=== PATIENT | female | born 1955 | race Caucasian/White ===

== ENCOUNTER 2017-05-09 09:06 | Inpatient (IN) | payer MEDICAID ==
[2017-05-09] VITALS (23 sets, daily range): BP systolic 101–152; BP diastolic 56–81
[~2017-05-09] VITALS: Ht 160 cm; Wt 64.5 kg
--- NOTE | ~2017-05-09 | EKG ---
[address] [address] ELECTROCARDIOGRAM REPORT Name: DENIZ WOO Room #: 246-P ADM IN M.R.#: [id number] Admission: 05/09/17 Attend Phys: Stan Childs Discharge: Date of : 55 Report #: [id number] THIS REPORT FOR: //name// [facility] ED Test Date: 2017-05-09 Test Time: 09:31:08 Pat Name: DENIZ WOO Department: Room: 246 Gender: F Crib Pad Maker: PARESH : 1955 Requested By: Edgar Taylor Order Number: [id number] MD: Armin Yao Measurements Intervals [place] Rate: 98 P: 123 HI: 214 QRS: 74 QRSD: 125 T: 17 QT: 365 QTc: 467 Interpretive Statements Sinus rhythm Borderline prolonged HI interval Nonspecific intraventricular conduction delay No previous ECG available for comparison Electronically Signed On 05-10-2017 16:55:41 CDT by Armin Yao [email or web address] <ELECTRONICALLY SIGNED> By: Armin Yao MD 05/10/17 1655 0931 0 Armin Yao MD /TAHIRA
--- NOTE | ~2017-05-09 | 2DMMODE ---
[facility] [address] [place] [address] 2 D/M-MODE ECHOCARDIOGRAM Name: DENIZ WOO Room #: 246-P ADM IN M.R.#: [id number] Admission: 05/09/17 Attend Phys: Stan Harper Discharge: Date of : 55 Date of Service: 05/11/17 0755 Report #: [id number] THIS REPORT FOR: //name// APPROVED REPORT Study performed: 05/11/2017 07:14:34 EXAM: Comprehensive 2D, Doppler, and color-flow Echocardiogram Patient Location: ICU Room #: [facility] Status: routine Other Information Study Quality: Adequate/Limited mobility. Indications Congestive Heart Failure Dyspnea 2D Dimensions RVDd: 39.85 mm LVEF(%): 65.86 (>50%) IVSd: 11.06 (7-11mm) LVOT Diam: 18.91 (18-24mm) LVDd: 44.91 mm PWd: 10.40 (7-11mm) Ascending Ao: 32.33 (22-36mm) LVDs: 28.70 (25-40mm) Aortic Root: 30.67 mm Pacheco's LVEF: 65.86 % Volumes Left Atrial Volume (Systole) Single Plane 4CH: 41.52 mL Single Plane 2CH: 44.38 mL LA ESV Index: 27.00 mL/m2 Aortic Valve AoV Peak Abhijit.: 1.85 m/s AO Peak Gr.: 13.64 mmHg LVOT Max P.30 mmHg LVOT Max V: 1.26 m/s JOSÉ MIGUEL Vmax: 1.91 cm2 Mitral Valve IVRT: 51.90 ms Pulmonary Valve PV Peak Abhijit.: 1.46 m/s PV Peak Gr.: 8.54 mmHg [facility] [address] [place] [address] 2 D/M-MODE ECHOCARDIOGRAM Name: DENIZ WOO Room #: [address] [place] [address] IN ..#: [id number] Admission: 05/09/17 Attend Phys: Stan Harper Discharge: Date of : 55 Date of Service: 05/11/17 0755 Report #: [id number] Tricuspid Valve TR Peak Abhijit.: 2.82 m/s RAP Estimate: 10.00 mmHg TR Peak Gr.: 31.78 mmHg PA Pressure: 42.00 mmHg Left Ventricle The left ventricle is normal size. There is normal LV segmental wall motion. There is normal left ventricular wall thickness. Left ventricular systolic function is normal. LVEF is 60-65%. This study is not technically sufficient to allow evaluation of the LV diastolic function due to rapid heart rate. Right Ventricle The right ventricle is normal size. The right ventricular systolic function is normal. Atria The left atrium size is normal. The right atrium size is normal. Aortic Valve Aortic valve leaflets are mildly thickened. No aortic regurgitation is present. There is no aortic valvular stenosis. Mitral Valve Mitral valve leaflets are mildly thickened. Trace mitral regurgitation. No evidence of mitral valve stenosis. Tricuspid Valve The tricuspid valve is normal in structure. There is mild tricuspid regurgitation. The right atrial pressure is estimated at 10 mmHg. There is moderate pulmonary hypertension with an estimated PAP of 40-45mmHg. Pulmonic Valve Pulmonic valve is not well visualized. Great Vessels The aortic root is normal in size. The ascending aorta is normal in size. IVC is dilated and collapses <50% with inspiration. Pericardium There is no pericardial effusion. <Conclusion> [facility] [address] [place] [address] 2 D/M-MODE ECHOCARDIOGRAM Name: DENIZ WOO Room #: 246-P [facility] IN M.R.#: [id number] Admission: 05/09/17 Attend Phys: Stan Harper Discharge: Date of : 55 Date of Service: 05/11/17 0755 Report #: [id number] The left ventricle is normal size. LVEF is 60-65%. Aortic valve leaflets are mildly thickened. No aortic regurgitation is present. There is no aortic valvular stenosis. Mitral valve leaflets are mildly thickened. Trace mitral regurgitation. No evidence of mitral valve stenosis. The tricuspid valve is normal in structure. There is mild tricuspid regurgitation. The right atrial pressure is estimated at 10 mmHg. There is moderate pulmonary hypertension with an estimated PAP of 40-45mmHg. Pulmonic valve is not well visualized. IVC is dilated and collapses <50% with inspiration. <ELECTRONICALLY SIGNED> By: Westley Varela MD 05/11/175 4 4 Westley Varela MD /INF
[2017-05-09 09:41] LABS: ABG SAMPLE TYPE ARTERIAL; BE(vivo) -6.3 mmol/L (-2 to +3); HCO3 22.3 mmol/L (22.0-26.0); LACTATE 1.12 mmol/L (0.5-2.0); O2(CT) 14.8 mL/dL (15.0-23.0); O2Hb 87.4 % (92.0-98.0); PCO2 59.1 mmHg (35.0-45.0); PO2 64.3 mmHg (80.0-100.0); STICK SITE L.RADIAL; pH 7.195 (7.360-7.450); tCO2 24.1 mmol/L (24.0-30.0)
[2017-05-09 09:42] LABS: HEMATOCRIT 34.7 % (37.0-47.0); HEMOGLOBIN 11.5 gm/dL (12.0-15.0); MANUAL DIFF YES; MCH 28.9 pg (26.0-34.0); MCV 87.7 fL (80.0-100.0); PLATELET COUNT 226 thou/uL (150-400); RBC 3.96 mil/uL (4.20-5.00); WBC 15.3 thou/uL (4.0-11.0)
[2017-05-09] MEDS ORDERED: VENLAFAXIN75 MG/1 T2 PO (09:47)
[2017-05-09] MEDS ORDERED: CLONAZEPAM 0.50.5 M1 PO (09:48)
[2017-05-09] MEDS ORDERED: CENTRUM CHEWAB1 EACH PO (09:48)
[2017-05-09] MEDS ORDERED: PROBIOTIC1 EAC1 PO (09:49)
[2017-05-09] MEDS ORDERED: CLONAZEPAM 1 MG1 M1 PO (09:49)
[2017-05-09] MEDS ORDERED: TRAZODONE HCL50 MG PO (09:49)
[2017-05-09] MEDS ORDERED: PHENERGAN 25 MG25 M1 PO (09:50)
[2017-05-09] MEDS ORDERED: NAPROSYN500 MG PO (09:50)
[2017-05-09] MEDS ORDERED: LAMICTAL XR200 MG PO (09:50)
[2017-05-09] MEDS ORDERED: SYMBICORT160 MCG/4. INH (09:51)
[2017-05-09] MEDS ORDERED: ZANAFLEX4 MG PO (09:51)
[2017-05-09] MEDS ORDERED: HYDROXYZINE HCL25 M2 PO (09:52)
[2017-05-09] MEDS ORDERED: LIDODERM 5%1 PATC1 TRANSDERM (09:53)
[2017-05-09] MEDS ORDERED: COMBIVENT INH (09:53)
[2017-05-09 09:54] LABS: ANION GAP 14 mmol/L (7-16); BUN 62 mg/dL (7-18); CALCIUM 8.8 mg/dL (8.5-10.1); CHLORIDE 96 mmol/L (98-107); CO2 25 mmol/L (21-32); CREATININE 6.2 mg/dL (0.6-1.0); GLUCOSE 141 mg/dL (74-106); POTASSIUM 4.9 mmol/L (3.5-5.1); SODIUM 135 mmol/L (136-145)
[2017-05-09 10:05] LABS: ALKALINE PHOSPHATASE 150 U/L (46-116); MAGNESIUM 2.3 mg/dL (1.8-2.4); NT-PRO BRAIN NAT PEPTIDE 7264 pg/mL (<300); SGOT 22 U/L (15-37); SGPT 14 U/L (30-65); TOTAL BILIRUBIN 1.3 mg/dL (<0.1-1.0); TOTAL PROTEIN 8.3 g/dL (6.4-8.2); TROPONIN-I < 0.04 ng/mL (<0.04-0.07)
[2017-05-09 10:18] LABS: URINE BILIRUBIN 1+ (Negative); URINE BLOOD 1+ (Negative); URINE GLUCOSE-RANDOM* NEGATIVE (Negative); URINE KETONES NEGATIVE (Negative); URINE LEUKOCYTES-REFLEX NEGATIVE (Negative); URINE PROTEIN (DIPSTICK) 2+ (Negative); URINE SPECIFIC GRAVITY >= 1.030 (1.003-1.035); URINE UROBILINOGEN 0.2 E.U./dl (0.2-1.0)
[2017-05-09 10:20] LABS: ICTOTEST (BILI CONFIRMATORY) Negative (Negative); URINE COLOR DARK YELLOW
[2017-05-09 10:24] LABS: ABSOLUTE NEUTROPHILS 11.5 thou/uL (1.4-8.2); METAMYELOCYTES 3 %; PLATELET ESTIMATE NORMAL; TOTAL CELL COUNT 100
[2017-05-09 10:27] LABS: SQUAMOUS 0-3 Few /LPF (0-3)
[2017-05-09 10:28] LABS: CASTS None Seen /LPF (None Seen)
[2017-05-09 10:30] LABS: AMORPHOUS URATES Few /LPF (None Seen); URINE RBC 0-2 Rare /HPF (0-2); URINE WBC-REFLEX 0-5 Rare /HPF (0-5)
[2017-05-09 10:59] LABS: ABG SAMPLE TYPE ARTERIAL; O2(CT) 14.5 mL/dL (15.0-23.0); O2Hb 96.3 % (92.0-98.0); PCO2 53.3 mmHg (35.0-45.0); PO2 111.1 mmHg (80.0-100.0); sO2 96.4 % (92.0-98.0); tCO2 18.7 mmol/L (24.0-30.0)
[2017-05-09 11:00] LABS: Pressure Support 12 cm H20; STICK SITE L.RADIAL; pH 7.122 (7.360-7.450)
[2017-05-09 11:25] LABS: CALCIUM 7.3 mg/dL (8.5-10.1); CREATININE 5.6 mg/dL (0.6-1.0); POTASSIUM 4.9 mmol/L (3.5-5.1)
[2017-05-09 11:46] LABS: APTT 34.8 Seconds (24.5-32.8); FIBRINOGEN 555.4 mg/dL (210-360)
[2017-05-09] MEDS ORDERED: CERTAVITE-LUTE1 EAC1 PO (13:35)
[2017-05-09] MEDS ORDERED: LAMICTAL200 MG PO (13:36)
[2017-05-09 15:04] LABS: ABG SAMPLE TYPE VENOUS; BE(vivo) -11.3 mmol/L (-2 to +3); LACTATE 0.89 mmol/L (0.5-2.0); O2(CT) 12.7 mL/dL (15.0-23.0); O2Hb VENOUS 78.2 (65.0-85.0); PCO2 VENOUS 55.6 mmHg (41.0-51.0); sO2 VENOUS 72.5 % (65.0-85.0); tCO2 19.7 mmol/L (24.0-30.0)
[2017-05-09 15:07] LABS: AMYLASE 24 U/L (25-115)
[2017-05-09 15:11] LABS: STICK SITE LINE
[2017-05-09 15:37] LABS: CALCIUM 7.6 mg/dL (8.5-10.1); CREATININE 5.6 mg/dL (0.6-1.0); POTASSIUM 5.4 mmol/L (3.5-5.1)
[2017-05-09 16:53] LABS: ABG SAMPLE TYPE ARTERIAL; BE(vivo) -9.5 mmol/L (-2 to +3); HCO3 19.5 mmol/L (22.0-26.0); LACTATE 1.14 mmol/L (0.5-2.0); O2(CT) 11.2 mL/dL (15.0-23.0); O2Hb VENOUS 71.1 (65.0-85.0); PCO2 VENOUS 57.1 mmHg (41.0-51.0); PO2 VENOUS 40.4 mmHg (35.0-45.0); sO2 VENOUS 60.5 % (65.0-85.0); tCO2 21.2 mmol/L (24.0-30.0)
[2017-05-09 16:56] LABS: Pressure Support 12 cm H20; STICK SITE LINE
[2017-05-09 17:59] LABS: ABG SAMPLE TYPE VENOUS; HCO3 23.2 mmol/L (22.0-26.0); LACTATE 1.41 mmol/L (0.5-2.0); O2(CT) 12.2 mL/dL (15.0-23.0); O2Hb VENOUS 78.3 (65.0-85.0); PCO2 VENOUS 58.3 mmHg (41.0-51.0); PO2 VENOUS 45.1 mmHg (35.0-45.0); sO2 VENOUS 71.3 % (65.0-85.0)
[2017-05-09 18:00] LABS: STICK SITE LINE
[2017-05-09 18:57] LABS: ABG SAMPLE TYPE ARTERIAL; BE(vivo) -6.5 mmol/L (-2 to +3); HCO3 20.1 mmol/L (22.0-26.0); LACTATE 1.13 mmol/L (0.5-2.0); O2(CT) 13.5 mL/dL (15.0-23.0); PCO2 44.8 mmHg (35.0-45.0); sO2 84.6 % (92.0-98.0); tCO2 21.5 mmol/L (24.0-30.0)
[2017-05-09 18:58] LABS: PO2 55.3 mmHg (80.0-100.0); STICK SITE L.RADIAL
[2017-05-09 19:01] LABS: ABG SAMPLE TYPE VENOUS; BE(vivo) -5.2 mmol/L (-2 to +3); HCO3 22.8 mmol/L (22.0-26.0); LACTATE 1.26 mmol/L (0.5-2.0); O2(CT) 9.7 mL/dL (15.0-23.0); O2Hb VENOUS 63.8 (65.0-85.0); PCO2 VENOUS 56.1 mmHg (41.0-51.0); PO2 VENOUS 34.2 mmHg (35.0-45.0); sO2 VENOUS 54.1 % (65.0-85.0); tCO2 24.5 mmol/L (24.0-30.0)
[2017-05-09 19:07] LABS: STICK SITE LINE
[2017-05-09 20:13] LABS: CALCIUM 7.5 mg/dL (8.5-10.1); CREATININE 5.6 mg/dL (0.6-1.0); POTASSIUM 4.8 mmol/L (3.5-5.1)
[2017-05-09 20:39] LABS: AMP/METHAMP Negative (Negative); BARBITURATES Negative (Negative); BENZODIAZEPINES Negative (Negative); COCAINE Negative (Negative); METHADONE Negative (Negative); OPIATES POSITIVE (Negative); PCP Negative (Negative); THC Negative (Negative)
[2017-05-09 22:11] LABS: ABG SAMPLE TYPE ARTERIAL; BE(vivo) -5.5 mmol/L (-2 to +3); HCO3 21.6 mmol/L (22.0-26.0); LACTATE 1.14 mmol/L (0.5-2.0); O2(CT) 13.5 mL/dL (15.0-23.0); O2Hb 88.7 % (92.0-98.0); PCO2 49.5 mmHg (35.0-45.0); PO2 62.4 mmHg (80.0-100.0); STICK SITE LINE; pH 7.258 (7.360-7.450); sO2 88.2 % (92.0-98.0); tCO2 23.1 mmol/L (24.0-30.0)
[2017-05-10] VITALS (45 sets, daily range): BP systolic 108–219; BP diastolic 59–96
[2017-05-10 04:20] LABS: HEMATOCRIT 29.6 % (37.0-47.0); HEMOGLOBIN 10.1 gm/dL (12.0-15.0); MCH 29.2 pg (26.0-34.0); PLATELET COUNT 158 thou/uL (150-400); RBC 3.44 mil/uL (4.20-5.00); RDW 15.7 % (10.5-14.5); WBC 10.2 thou/uL (4.0-11.0)
[2017-05-10 04:25] LABS: MANUAL DIFF YES
[2017-05-10 04:34] LABS: CALCIUM 7.1 mg/dL (8.5-10.1); POTASSIUM 4.5 mmol/L (3.5-5.1)
[2017-05-10 05:18] LABS: ABSOLUTE NEUTROPHILS 8.3 thou/uL (1.4-8.2); TOTAL CELL COUNT 100
[2017-05-10 05:19] LABS: POLYCHROMASIA OCCASIONAL
[2017-05-10 08:09] LABS: ABG SAMPLE TYPE ARTERIAL; BE(vivo) -5.5 mmol/L (-2 to +3); HCO3 21.4 mmol/L (22.0-26.0); LACTATE 0.94 mmol/L (0.5-2.0); O2Hb 90.9 % (92.0-98.0); PCO2 47.9 mmHg (35.0-45.0); PO2 67.5 mmHg (80.0-100.0); pH 7.267 (7.360-7.450); sO2 90.7 % (92.0-98.0); tCO2 22.8 mmol/L (24.0-30.0)
[2017-05-10 08:10] LABS: STICK SITE R.RADIAL
[2017-05-10 12:09] LABS: ABG SAMPLE TYPE ARTERIAL; BE(vivo) -5.3 mmol/L (-2 to +3); HCO3 21.5 mmol/L (22.0-26.0); LACTATE 0.99 mmol/L (0.5-2.0); O2(CT) 14.7 mL/dL (15.0-23.0); O2Hb 95.3 % (92.0-98.0); PCO2 47.5 mmHg (35.0-45.0); PO2 89.8 mmHg (80.0-100.0); sO2 95.7 % (92.0-98.0); tCO2 22.9 mmol/L (24.0-30.0)
[2017-05-10 12:10] LABS: STICK SITE R.RADIAL; pH 7.273 (7.360-7.450)
[2017-05-11] VITALS (37 sets, daily range): BP systolic 85–168; BP diastolic 60–114
[2017-05-11 04:28] LABS: HEMATOCRIT 30.3 % (37.0-47.0); HEMOGLOBIN 10.1 gm/dL (12.0-15.0); MCH 28.3 pg (26.0-34.0); MCHC 33.3 g/dL (28.0-37.0); MCV 85.1 fL (80.0-100.0); PLATELET COUNT 179 thou/uL (150-400); RBC 3.56 mil/uL (4.20-5.00); RDW 15.9 % (10.5-14.5); WBC 13.5 thou/uL (4.0-11.0)
[2017-05-11 04:29] LABS: MANUAL DIFF YES
[2017-05-11 04:36] LABS: CALCIUM 7.3 mg/dL (8.5-10.1); POTASSIUM 3.8 mmol/L (3.5-5.1)
[2017-05-11 04:38] LABS: CREATININE 3.3 mg/dL (0.6-1.0)
[2017-05-11 05:52] LABS: ABSOLUTE NEUTROPHILS 10.7 thou/uL (1.4-8.2); MYELOCYTES 1 %; TOTAL CELL COUNT 100
[2017-05-11] MEDS ORDERED: EFFEXOR XR75 MG PO (08:14)
[2017-05-11 16:12] LABS: KAPPA FREE LIGHT CHAINS 114.9 mg/L (3.3-19.4); KAPPA/LAMBDA RATIO 1.78 (0.26-1.65); LAMBDA FREE LIGHT CHAINS 64.7 mg/L (5.7-26.3)
[2017-05-12] VITALS (29 sets, daily range): BP systolic 125–185; BP diastolic 57–110
[2017-05-12 05:49] LABS: HEMATOCRIT 34.1 % (37.0-47.0); HEMOGLOBIN 11.3 gm/dL (12.0-15.0); MCH 28.5 pg (26.0-34.0); MCHC 33.1 g/dL (28.0-37.0); MCV 86.1 fL (80.0-100.0); RBC 3.96 mil/uL (4.20-5.00); RDW 15.9 % (10.5-14.5); WBC 15.8 thou/uL (4.0-11.0)
[2017-05-12 06:09] LABS: ALBUMIN 2.6 g/dL (3.4-5.0); CALCIUM 8.2 mg/dL (8.5-10.1); CREATININE 2.8 mg/dL (0.6-1.0); PHOSPHORUS 4.9 mg/dL (2.5-4.9); POTASSIUM 4.4 mmol/L (3.5-5.1)
[2017-05-13 03:04] LABS: HEMATOCRIT 36.2 % (37.0-47.0); MCH 28.3 pg (26.0-34.0); MCHC 33.2 g/dL (28.0-37.0); MCV 85.1 fL (80.0-100.0); RBC 4.25 mil/uL (4.20-5.00); RDW 15.5 % (10.5-14.5); WBC 20.1 thou/uL (4.0-11.0)
[2017-05-13 03:07] VITALS: BP 167/90
[2017-05-13 03:16] LABS: ALBUMIN 2.6 g/dL (3.4-5.0); CALCIUM 8.5 mg/dL (8.5-10.1); PHOSPHORUS 2.9 mg/dL (2.5-4.9)
[2017-05-13 03:20] LABS: CREATININE 1.8 mg/dL (0.6-1.0)
[2017-05-13 07:41] VITALS: BP 177/104
[2017-05-13 16:56] VITALS: BP 175/100
[2017-05-13 19:36] VITALS: BP 163/96
[2017-05-14 03:14] VITALS: BP 151/86
[2017-05-14 04:21] LABS: HEMATOCRIT 37.1 % (37.0-47.0); HEMOGLOBIN 12.2 gm/dL (12.0-15.0); MCH 28.5 pg (26.0-34.0); MCHC 32.9 g/dL (28.0-37.0); MCV 86.6 fL (80.0-100.0); RBC 4.29 mil/uL (4.20-5.00); RDW 15.6 % (10.5-14.5); WBC 20.2 thou/uL (4.0-11.0)
[2017-05-14 04:45] LABS: ALBUMIN 2.6 g/dL (3.4-5.0); CALCIUM 8.6 mg/dL (8.5-10.1); CREATININE 1.4 mg/dL (0.6-1.0); PHOSPHORUS 2.8 mg/dL (2.5-4.9); POTASSIUM 3.3 mmol/L (3.5-5.1)
[2017-05-14 07:45] VITALS: BP 152/83
[2017-05-14 12:04] LABS: ABG SAMPLE TYPE ARTERIAL; BE(vivo) 8.8 mmol/L (-2 to +3); HCO3 34.2 mmol/L (22.0-26.0); LACTATE 1.25 mmol/L (0.5-2.0); O2(CT) 15.9 mL/dL (15.0-23.0); O2Hb 85.7 % (92.0-98.0); PCO2 50.2 mmHg (35.0-45.0); PO2 51.6 mmHg (80.0-100.0); STICK SITE R.RADIAL; pH 7.451 (7.360-7.450); sO2 87.6 % (92.0-98.0); tCO2 35.7 mmol/L (24.0-30.0)
[2017-05-14 14:30] VITALS: BP 153/85
[2017-05-14 16:15] VITALS: BP 158/78
[2017-05-14 19:20] VITALS: BP 166/97
[2017-05-15 02:58] LABS: HEMATOCRIT 39.2 % (37.0-47.0); HEMOGLOBIN 12.8 gm/dL (12.0-15.0); MCH 28.1 pg (26.0-34.0); MCHC 32.6 g/dL (28.0-37.0); MCV 86.2 fL (80.0-100.0); RBC 4.55 mil/uL (4.20-5.00); RDW 15.7 % (10.5-14.5); WBC 21.5 thou/uL (4.0-11.0)
[2017-05-15 03:02] LABS: CALCIUM 8.5 mg/dL (8.5-10.1); CREATININE 1.3 mg/dL (0.6-1.0); POTASSIUM 3.5 mmol/L (3.5-5.1)
[2017-05-15 03:24] VITALS: BP 139/87
[2017-05-15 07:25] VITALS: BP 163/95
[2017-05-15 11:50] VITALS: BP 130/98
[2017-05-15 12:47] LABS: ABG SAMPLE TYPE ARTERIAL; BE(vivo) 3.3 mmol/L (-2 to +3); HCO3 30.1 mmol/L (22.0-26.0); LACTATE 2.29 mmol/L (0.5-2.0); O2(CT) 16.6 mL/dL (15.0-23.0); O2Hb 85.1 % (92.0-98.0); PO2 56.1 mmHg (80.0-100.0); STICK SITE L.RADIAL; pH 7.356 (7.360-7.450); sO2 87.5 % (92.0-98.0); tCO2 31.8 mmol/L (24.0-30.0)
[2017-05-15 15:30] VITALS: BP 149/66
[2017-05-15 19:04] VITALS: BP 149/95
[2017-05-16 04:01] VITALS: BP 147/87
[2017-05-16 05:59] LABS: HEMOGLOBIN 12.4 gm/dL (12.0-15.0); MCH 28.2 pg (26.0-34.0); MCHC 32.5 g/dL (28.0-37.0); MCV 86.6 fL (80.0-100.0); RBC 4.39 mil/uL (4.20-5.00); RDW 15.6 % (10.5-14.5)
[2017-05-16 06:04] LABS: CALCIUM 8.4 mg/dL (8.5-10.1); CREATININE 1.4 mg/dL (0.6-1.0)
[2017-05-16 07:12] LABS: ABG SAMPLE TYPE ARTERIAL; BE(vivo) 5.4 mmol/L (-2 to +3); HCO3 31.9 mmol/L (22.0-26.0); LACTATE 1.54 mmol/L (0.5-2.0); O2(CT) 17.1 mL/dL (15.0-23.0); O2Hb 92.8 % (92.0-98.0); PCO2 55.5 mmHg (35.0-45.0); PO2 71.9 mmHg (80.0-100.0); STICK SITE L.RADIAL; pH 7.378 (7.360-7.450); sO2 93.9 % (92.0-98.0); tCO2 33.7 mmol/L (24.0-30.0)
[2017-05-16 07:41] VITALS: BP 129/74
[2017-05-16 11:03] VITALS: BP 115/69
[2017-05-16 16:35] VITALS: BP 129/71
[2017-05-16 19:27] VITALS: BP 135/83
[2017-05-17 00:19] VITALS: BP 139/86
[2017-05-17 03:36] VITALS: BP 156/79
[2017-05-17 05:57] LABS: HEMATOCRIT 37.2 % (37.0-47.0); HEMOGLOBIN 11.7 gm/dL (12.0-15.0); MCH 27.7 pg (26.0-34.0); MCHC 31.6 g/dL (28.0-37.0); MCV 87.7 fL (80.0-100.0); RBC 4.23 mil/uL (4.20-5.00); RDW 15.1 % (10.5-14.5); WBC 21.6 thou/uL (4.0-11.0)
[2017-05-17 06:11] LABS: CALCIUM 8.5 mg/dL (8.5-10.1); CREATININE 1.3 mg/dL (0.6-1.0); POTASSIUM 3.4 mmol/L (3.5-5.1)
[2017-05-17 07:33] VITALS: BP 141/74
[2017-05-17] MEDS ORDERED: MIRALAX17 GM PO (14:36)
[2017-05-17] MEDS ORDERED: DUONEB 2.5-0.5 M3 ML INH ×2 (14:36)
[2017-05-17] MEDS ORDERED: NICOTINE TRANSD21 M1 TRANSDERM (14:36)
[2017-05-17] MEDS ORDERED: COLACE100 MG PO (14:36)
[2017-05-17] MEDS ORDERED: CARVEDILOL6.25 MG PO (14:36)
[2017-05-17] MEDS ORDERED: AUGMENTIN 500-1 EACH PO (14:36)
[2017-05-17] MEDS ORDERED: PREDNISONE 10 M10 MG PO (14:36)
[2017-05-17] MEDS ORDERED: FAMOTIDINE 10 M10 MG PO (14:36)
[2017-05-17] MEDS ORDERED: MELATONIN5 M1 PO (14:36)
[2017-05-17] MEDS ORDERED: VOLTAREN GEL 1100 G1 TOP (14:36)
[2017-05-17] MEDS ORDERED: ENOXAPARIN30 MG/0.1 SUBQ (14:36)
== END 2017-05-17 16:05 | DRG 871 ==
LOC: ER 09:06 → ICU 10:14 → 2N 10:14 → EROBS 10:14 → ICU 11:54 → 2N 05-12 11:56
PROVIDERS: Hospitalist; Internal Medicine Nephrology; Internal Medicine Pulmonary Disease; Physician Assistant
PROC: 05HM33Z Insertion of Infusion Device into Right Internal Jugular Vein, Percutaneous Approach (ICD-10-PCS; principal; 2017-05-09)
DX: A41.9 Sepsis, unspecified organism (principal); R65.21 Severe sepsis with septic shock; J96.01 Acute respiratory failure with hypoxia; J96.02 Acute respiratory failure with hypercapnia; G92 Toxic encephalopathy; N17.0 Acute kidney failure with tubular necrosis; J69.0 Pneumonitis due to inhalation of food and vomit; N39.0 Urinary tract infection, site not specified; I13.0 Hypertensive heart and chronic kidney disease with heart failure and stage 1 through stage 4 chronic kidney disease, or unspecified chronic kidney disease; E87.0 Hyperosmolality and hypernatremia; J44.0 Chronic obstructive pulmonary disease with (acute) lower respiratory infection; J44.1 Chronic obstructive pulmonary disease with (acute) exacerbation; F33.9 Major depressive disorder, recurrent, unspecified; N18.9 Chronic kidney disease, unspecified; E86.0 Dehydration; F17.210 Nicotine dependence, cigarettes, uncomplicated; F41.9 Anxiety disorder, unspecified; K82.8 Other specified diseases of gallbladder; G47.00 Insomnia, unspecified; E87.5 Hyperkalemia; I50.9 Heart failure, unspecified; E87.6 Hypokalemia; Z79.899 Other long term (current) drug therapy; Z99.81 Dependence on supplemental oxygen
CPT/HCPCS: 10078; 10081

== ENCOUNTER 2020-09-16 23:11 | Inpatient (IN) | payer MEDICAID ==
[~2020-09-16] VITALS: Ht 167.6 cm; Wt 69.5 kg
--- NOTE | ~2020-09-16 | HC ---
[facility] [place] [address] CONSULTATION Name: DENIZ WOO Room #: [facility]- ADM IN M.R.#: [id number] Admission: 09/17/20 Attend Phys: Nando Foy MD Discharge: Date of : 55 Report #: [id number] THIS REPORT FOR: cc: FAM - Family physician unknown FAM - Family physician unknown Travon Wise MD ~ REASON FOR CONSULTATION: Acute kidney injury. REASON FOR PRESENTATION: Shortness of breath. HISTORY OF PRESENT ILLNESS: Obtained from the medical chart. I am not able to obtain any history from the patient. She is currently intubated. She had tested positive for COVID-19. I was consulted to manage her acute kidney injury as she had a creatinine value of 5.5 on arrival. She also has significant hyperkalemia with a value of 6.5. She had some significant acidosis. She is currently intubated and not able to provide us with any history. PAST MEDICAL HISTORY: Unobtainable given the patient's current mental status; however, it is mentioned that the patient carries a diagnosis of COPD. She also carries the diagnoses of seizure disorders, psychosis. REPORTED MEDICATIONS: 1. Naproxen. 2. Folic acid. 3. Lamictal. 4. Felodipine. 5. Carvedilol. REVIEW OF SYSTEMS: Unobtainable given the patient's current mental status. ALLERGIES: CLARITHROMYCIN AND ZYPREXA. FAMILY HISTORY: Unobtainable given the patient's current mental status. SOCIAL HISTORY: Unobtainable given the patient's current mental status. PHYSICAL EXAMINATION: GENERAL: The patient is intubated. VITAL SIGNS: Blood pressure is 99/43. HEAD AND NECK: With an ET tube in place. CHEST: Bilateral crackles present. CARDIOVASCULAR: No rub detected. ABDOMEN: Soft. EXTREMITIES: Lower extremities, +1 edema. [facility] [address] [place] [address] CONSULTATION Name: DENIZ WOO Room #: 243-P [facility] IN [facility]#: [id number] Admission: 09/17/20 Attend Phys: Nando Foy MD Discharge: Date of : 55 Report #: [id number] LABORATORY DATA: Laboratory values from today revealed a hemoglobin of 7.6. Chemistry revealed sodium of 138, potassium of 5.3, BUN of 76, creatinine of 4.6. IMPRESSION AND PLAN: 1. Acute kidney injury. 2. COVID-19 pneumonitis. 3. Septic shock. 4. Her acute kidney injury is well explained by her current presentation. She has Gram-positive cocci in blood and currently Infectious Disease is managing her antibiotics. 5. No further diuresis. 6. Potassium has improved. 7. Continue with the sodium bicarbonate drip for now. 8. Continue with the vent support. 9. Continue to follow urine output, daily electrolytes and renal function. 10. I attempted to reach out to her son on numerous times with no success. We will attempt to reach them today. By: [id number] Travon Wise MD /reinaldo
--- NOTE | ~2020-09-16 | EMS ---
[address] [address] EMS Patient Care Report Name: DENIZ WOO Room #: PRE FINESSE M.R.#: [id number] Admission: Attend Phys: Discharge: Date of : 55 Report #: [id number] THIS REPORT FOR: //name// Report Transmitted: 09/16/2020 22:59 EMS Care Summary [facility] MED-ACT Incident [id number] @ 09/16/2020 22:33 Incident Location [address] [place] [address] Patient DENIZ WOO Female, 65 Years 1955 Patient Address [address] [place] [address] Patient History Chronic Obstructive Pulmonary Disease (COPD),Hypertension (HTN),Kidney/Renal Failure,Anemia, Patient Allergies Levaquin, Patient Medications Symbicort, Tylenol, Gabapentin, Clonazepam, Cyanocobalamin Co57, Chief Complaint altered LOC Disposition Transported No Lights/Ragland Dispatch Reason Unconscious/Fainting Transported To [facility] Narrative This crew arrives to find the pt laying on her left side on a bed inside of [address] [address] EMS Patient Care Report Name: DENIZ WOO Room #: PRE ER M.R.#: [id number] Admission: Attend Phys: Discharge: Date of : 55 Report #: [id number] this nursing facility. S47 is on scene, having received report from facility staff. They report the pt appearing fatigued and unable to finish dinner at roughly 1700 on this date. They found to her to be increasingly lethargic and 911 was later called. They add that the pt had a negative stat covid test result on this date. The pt is said to be on oxygen via NC at 2 lpm at contact, increased by S47 prior to EMS arrival. Staff report her normal mental status to be alert with some confusion. The pt will open eyes and respond to loud voice and respond when moved. She denies dyspnea or specific pain and is unable to provide specific complaints. Speech does not seem slurred and no evidence of stroke is noted. The pt is very cool to the touch. The pt is lifted from her bed to the cot without incident, secured and moved to the ambulance. There her oxygen is increased with an associated increase in spo2. No appropriate IV site found. No further change in condition en route. The pt is moved to ER bed 4 without incident, report and care given to ELENA Greene. Initial Vitals @22:55R: 17,BP: 116/56,SpO2: 81, @23:04P: 103,R: 25,BP: 103/36,SpO2: 100, @22:56P: 106,R: 26,SpO2: 79, @22:55P: 107,R: 10,SpO2: 78, @PTAP: 100,R: 24,BP: 103/63,Pain: 0/10,GCS: 12,Temp: 97.2F,Glucose: 113,SpO2: 66,Revised Trauma: 11, Assessments @23:01MENTAL:Person Oriented,SKIN:Cold,Pale,Mottled,HEENT:Eyes: Left Pupil: 4-mm,Eyes: Right Pupil: 4-mm,Head/Face: No Abnormalities,LUNG SOUNDS:General: No Abnormalities,ABDOMEN:General: No Abnormalities,PELVIS//GI:EXTREMITIES:Left Arm: No Abnormalities,Right Arm: No Abnormalities,Left Leg: No Abnormalities,Right Leg: No Abnormalities,PULSE:NEURO:No Abnormalities, Impression Altered Mental Status Procedures @23:00ALS AssessmentResponse: UnchangedSucceeded@22:56Oxygen FlowRate: 15 Device: Non Re-breather Mask (NRB) Response: ImprovedSucceeded Timeline TRANSPORT PILOT,BP: 103/63 M,PULSE: 100,RR: 24 R,SPO2: 66 Ox,ETCO2: ,B,PAIN: 0,GCS: 12, 22:32,Call Received 22:32,Psap Call 22:33,Dispatched 22:35,En Route [address] [address] EMS Patient Care Report Name: DENIZ WOO Room #: PRE M.R.#: [id number] Admission: Attend Phys: Discharge: Date of : 55 Report #: [id number] 22:42,On Scene 22:45,At Patient 22:55,BP: / M,PULSE: 107,RR: 10 R,SPO2: 78 Ox,ETCO2: ,BG: ,PAIN: ,GCS: , 22:55,BP: 116/56 M,PULSE: ,RR: 17 R,SPO2: 81 Ox,ETCO2: ,BG: ,PAIN: ,GCS: , 22:56,Oxygen FlowRate: 15 Device: Non Re-breather Mask (NRB) Response: ImprovedSucceeded, 22:56,BP: / M,PULSE: 106,RR: 26 R,SPO2: 79 Ox,ETCO2: ,BG: ,PAIN: ,GCS: , 22:57,Depart Scene 23:00,ALS Assessment,Response: UnchangedSucceeded, 23:04,At Destination 23:04,BP: 103/36 M,PULSE: 103,RR: 25 R,SPO2: 100 Ox,ETCO2: ,BG: ,PAIN: ,GCS: , 23:23,Call Closed Disclaimer v1.1 Copyright 2020 [employer] This EMS Care Summary contains data elements from the applicable legal record (which may be displayed differently). It is designed to provide pertinent information for the following purposes: continuity of care, clinical quality, and state data reporting. The complete legal record is available to ED staff and administrators of the receiving hospital in [employer]'s Patient Tracker. All data is provided "as is."
[2020-09-16 23:11] VITALS: BP 124/68
[~2020-09-16 23:11] MED LIST: AUGMENTIN 500-1 EACH PO; CARVEDILOL6.25 MG PO; CENTRUM CHEWAB1 EACH PO; CERTAVITE-LUTE1 EAC1 PO; CLONAZEPAM 0.50.5 M1 PO; CLONAZEPAM 1 MG1 M1 PO; COLACE100 MG PO; COMBIVENT INH; DUONEB 2.5-0.5 M3 ML INH; EFFEXOR XR75 MG PO; ENOXAPARIN30 MG/0.1 SUBQ; FAMOTIDINE 10 M10 MG PO; HYDROXYZINE HCL25 M2 PO; LAMICTAL XR200 MG PO; LAMICTAL200 MG PO; LIDODERM 5%1 PATC1 TRANSDERM; MELATONIN5 M1 PO; MIRALAX17 GM PO; NAPROSYN500 MG PO; NICOTINE TRANSD21 M1 TRANSDERM; PHENERGAN 25 MG25 M1 PO; PREDNISONE 10 M10 MG PO; PROBIOTIC1 EAC1 PO; SYMBICORT160 MCG/4. INH; TRAZODONE HCL50 MG PO; VENLAFAXIN75 MG/1 T2 PO; VOLTAREN GEL 1100 G1 TOP; ZANAFLEX4 MG PO
[2020-09-16 23:55] LABS: ABSOLUTE NEUTROPHILS 11.8 thou/uL (1.4-8.2); BASOPHILS 0.3 % (0.0-2.0); EOSINOPHILS 1.5 % (0.0-3.0); HEMATOCRIT 29.4 % (37.0-47.0); HEMOGLOBIN 9.3 gm/dL (12.0-15.0); LYMPHOCYTES 11.3 % (24.0-44.0); MCH 28.3 pg (26.0-34.0); MCHC 31.7 g/dL (28.0-37.0); MCV 89.3 fL (80.0-100.0); PLATELET COUNT 292 thou/uL (150-400); POLYS 76.9 % (36.0-66.0); RBC 3.29 mil/uL (4.20-5.00); RDW 15.7 % (10.5-14.5); WBC 15.3 thou/uL (4.0-11.0)
[2020-09-17] VITALS (71 sets, daily range): BP systolic 96–161; BP diastolic 37–84
[2020-09-17 00:09] LABS: ALBUMIN 2.8 g/dL (3.4-5.0); ANION GAP 12 mmol/L (7-16); BUN 87 mg/dL (7-18); CALCIUM 8.9 mg/dL (8.5-10.1); CHLORIDE 103 mmol/L (98-107); CO2 22 mmol/L (21-32); CREATININE 5.5 mg/dL (0.6-1.0); DIRECT BILIRUBIN < 0.1 mg/dL (<0.1-0.2); GLUCOSE 126 mg/dL (74-106); SGOT 21 U/L (15-37); SGPT 17 U/L (30-65); SODIUM 137 mmol/L (136-145); TOTAL BILIRUBIN 0.2 mg/dL (0.2-1.0); TOTAL PROTEIN 8.6 g/dL (6.4-8.2)
[2020-09-17 00:10] LABS: BE(vivo) -8.4 mmol/L (-2 to +3); HCO3 19.1 mmol/L (22.0-26.0); PCO2 48.3 mmHg (35.0-45.0); PO2 255.7 mmHg (80.0-100.0); pH 7.215 (7.360-7.450); sO2 99.4 % (92.0-98.0)
[2020-09-17 00:15] LABS: POTASSIUM 6.5 mmol/L (3.5-5.1)
[2020-09-17 01:18] LABS: CALCIUM 8.6 mg/dL (8.5-10.1); CREATININE 5.5 mg/dL (0.6-1.0)
[2020-09-17 01:22] LABS: POTASSIUM 6.5 mmol/L (3.5-5.1)
--- NOTE | 2020-09-17 01:45 | NUR ---
[facility] CONTACTED [phone] IN REGARDS TO OBTAINING PAPERWORK (HISTORY, MEDS, ETC). SPOKE WITH TAHIRA AND PROVIDED FAX NUMBER TO OBTAIN INFORMATION FOR HISTORY ALSO TO NOTIFY FAMILY OF CURRENT PATIENT STATUS.
[2020-09-17 03:42] LABS: URINE BILIRUBIN NEGATIVE (Negative); URINE BLOOD 1+ (Negative); URINE CLARITY CLOUDY; URINE COLOR YELLOW; URINE GLUCOSE-RANDOM* NEGATIVE (Negative); URINE KETONES NEGATIVE (Negative); URINE PROTEIN (DIPSTICK) 2+ (Negative); URINE UROBILINOGEN 0.2 E.U./dl (0.2-1.0)
[2020-09-17 03:43] LABS: URINE LEUKOCYTES-REFLEX 3+ (Negative); URINE NITRITE-REFLEX POSITIVE (Negative)
[2020-09-17 04:01] LABS: BACTERIA-REFLEX >30 Many /HPF (None Seen); CELLULAR CASTS 0-3 Few /LPF (None Seen); CRYSTALS None Seen /LPF (None Seen); HYALINE CASTS 0-3 Few /LPF (None Seen); MUCUS 0-3 Light strn/LPF (None Seen); SQUAMOUS 0-3 Few /LPF (0-3); URINE RBC 3-10 Few /HPF (0-2); URINE WBC-REFLEX >25 Many /HPF (0-5); WBC CLUMPS Moderate (None Seen)
[2020-09-17 05:27] LABS: BE(vivo) -10.8 mmol/L (-2 to +3); HCO3 16.9 mmol/L (22.0-26.0); PCO2 46.3 mmHg (35.0-45.0)
[2020-09-17 05:29] LABS: pH 7.181 (7.360-7.450)
[2020-09-17 06:19] LABS: CALCIUM 8.5 mg/dL (8.5-10.1); CREATININE 5.4 mg/dL (0.6-1.0)
[2020-09-17 06:20] LABS: POTASSIUM 6.2 mmol/L (3.5-5.1)
[2020-09-17 06:25] LABS: HEMATOCRIT 24.7 % (37.0-47.0); HEMOGLOBIN 7.7 gm/dL (12.0-15.0); MCHC 31.3 g/dL (28.0-37.0); MCV 89.4 fL (80.0-100.0); RBC 2.76 mil/uL (4.20-5.00); RDW 15.4 % (10.5-14.5); WBC 11.7 thou/uL (4.0-11.0)
[2020-09-17 06:43] LABS: APTT 26.8 Seconds (24.5-32.8); PROTIME 10.4 Seconds (9.3-11.4)
[2020-09-17 06:48] LABS: FIBRINOGEN 667.3 mg/dL (210-360)
--- NOTE | 2020-09-17 07:21 | NUR ---
PT ARRIVAL TO UNIT FROM ED ON VENT WITH PROPOFOL, LEVOPHED GTTS, PLACED IN ICU BED AND ON MONITORS, GTTS TITRATED SEE FLOW CHART. FOLLOWING COMMANDS WITH ASSESSMENTS, ROUSES EASILY. THICK COPIOUS SECRETIONS. TOLERATING VENT WELL. CALLED CONSULTS TO REBECCA, NO RETURN PAGE FROM ANY. ATTEMPTED TO CALL CRITICAL ABG TO RACHEL, NO RETURN CALL, RESULTS REPORTED TO FRANC ALEXANDRA. ATTEMPTED TO CALL PT EMERGENCY CONTACT PER [facility] PAPERWORK, RECIEVED BUSY SIGNAL X2. WILL ATTEMPT TO CALL [facility] TO VERIFY
[2020-09-17 09:08] LABS: CALCIUM 8.3 mg/dL (8.5-10.1); CREATININE 5.1 mg/dL (0.6-1.0); POTASSIUM 5.6 mmol/L (3.5-5.1)
--- NOTE | 2020-09-17 10:07 | NUR ---
If enteral nutrition started over weekend: 1. use nepro 25ml/hr if no improvement in renal function and labs or 2. use vital AF 1.2 at 30ml/hr Will follow up Sunday for additional recommendations
--- NOTE | 2020-09-17 10:45 | NUR ---
chart review. unable to visit with tyree dumont +, rt on vent, nutritional support. noted she is from [facility] ([facility] ). cm team provided updates to op centers, julia from [facility]. will cont following as needed for dc needs.
--- NOTE | 2020-09-17 13:00 | NUR ---
[facility] FAXED CLINICAL UPDATE SPOKE WITH SHERMAN IN ADM SHE RECEIVED UPDATE. DP TO FOLLOW.
--- NOTE | 2020-09-17 15:09 | EKG ---
[facility] [place] [address] ELECTROCARDIOGRAM REPORT Name: DENIZ WOO Room #: 243- ADM IN M.R.#: [id number] Admission: 09/17/20 Attend Phys: Nando Foy MD Discharge: Date of : 55 Report #: [id number] THIS REPORT FOR: cc: FAM - Family physician unknown FAM - Family physician unknown Grabiel Leon MD [facility] ~ THIS REPORT FOR: //name// [facility] ED Test Date: 2020-09-17 Test Time: 00:22:24 Pat Name: DENIZ WOO Department: Room: [facility] Gender: F Inspector Water Pollution Control: : 1955 Requested By: Taqueria Braxton Order Number: [id number] : Grabiel Leon Measurements Intervals [place] Rate: 99 P: 84 MO: 203 QRS: 66 QRSD: 108 T: 44 QT: 335 QTc: 430 Interpretive Statements Sinus rhythm Compared to ECG 05/09/2017 09:31:08 Intraventricular conduction delay no longer present Electronically Signed On 09-17-2020 15:09:36 MENDER HAND by Grabiel Leon [email or web address] <ELECTRONICALLY SIGNED> By: Grabiel Leon MD, FACC 09/17/20 1509 0022 0022 Grabiel Leon MD, [facility] /EPI
--- NOTE | 2020-09-17 15:32 | NUR ---
VAT CONSULTED FOR CVL PLACEMENT. RIGHT IJ PLACED, CHARTED.
[2020-09-18] VITALS (53 sets, daily range): BP systolic 87–164; BP diastolic 42–84
[2020-09-18 04:08] LABS: PROTIME 10.6 Seconds (9.3-11.4)
[2020-09-18 04:13] LABS: FIBRINOGEN 679.5 mg/dL (210-360)
[2020-09-18 04:34] LABS: ALBUMIN 2.1 g/dL (3.4-5.0); CALCIUM 8.6 mg/dL (8.5-10.1); CREATININE 4.6 mg/dL (0.6-1.0); POTASSIUM 5.3 mmol/L (3.5-5.1); TOTAL BILIRUBIN 0.2 mg/dL (0.2-1.0)
[2020-09-18 04:39] LABS: ABSOLUTE NEUTROPHILS 7.7 thou/uL (1.4-8.2); HEMATOCRIT 23.4 % (37.0-47.0); HEMOGLOBIN 7.6 gm/dL (12.0-15.0); MCH 28.5 pg (26.0-34.0); MCHC 32.7 g/dL (28.0-37.0); MCV 87.3 fL (80.0-100.0); MONOCYTES 5.7 % (1.0-8.0); PLATELET COUNT 227 thou/uL (150-400); POLYS 86.3 % (36.0-66.0); RBC 2.68 mil/uL (4.20-5.00); RDW 15.1 % (10.5-14.5); WBC 8.9 thou/uL (4.0-11.0)
--- NOTE | 2020-09-18 06:43 | NUR ---
PT ROUSES ON SEDATION AND FOLLOWS SIMPLE COMMANDS, NODS AND SHAKES HEAD. BECOMING INCREASINGLY AGITATED AND ANXIOUS, SHAKING FOOT BACK AND FORTH AND CLENCHING TEETH. INCREASED SEDATION FOR PT CALM AND VENT COMPLIANCE. REMAINS OFF LEVO, TOLERATING VENT WELL. CALLED OLIVIER FOR CV PLASMA CONSENT, NO ANSWER. CALLED NUMBER RECIEVED FRIEND FOR , EARL, WHO ANSWERED. THIS RN WAS ABLE TO SPEAK TO OLIVIER, GIVE UPDATE AND OBTAIN CONSENT
[2020-09-18 09:39] LABS: CALCIUM 8.3 mg/dL (8.5-10.1); CREATININE 4.5 mg/dL (0.6-1.0); POTASSIUM 5.1 mmol/L (3.5-5.1)
--- NOTE | 2020-09-18 22:35 | NUR ---
SPOKE WITH DAUGHTER IN LAW, EARL AND GAVE UPDATE, OBTAINED SOME SOCIAL/PSYCH HX ON PATIENT. SON AND DGT IN LAW HAVE REALISTIC EXPECTATIONS OF PT STATUS AND ARE PLEASANT AND INVOLVED.
[2020-09-18] MEDS ORDERED: VITAMIN B-121000 MC2 SUBLING (23:41)
[2020-09-18] MEDS ORDERED: ENALAPRIL MALEA10 M1 PO (23:42)
[2020-09-18] MEDS ORDERED: NEURONTIN 300M300 M2 PO (23:42)
[2020-09-18] MEDS ORDERED: LOPERAMIDE2 MG PO (23:43)
[2020-09-18] MEDS ORDERED: VITAMIN C250 M1 PO (23:45)
[2020-09-18] MEDS ORDERED: VITAMIN D310 MC3 PO (23:47)
[2020-09-18] MEDS ORDERED: VRAYLAR3 MG PO (23:48)
[2020-09-19] VITALS (13 sets, daily range): BP systolic 96–163; BP diastolic 48–78
[2020-09-19 03:07] LABS: ABSOLUTE NEUTROPHILS 6.3 thou/uL (1.4-8.2); BASOPHILS 0.1 % (0.0-2.0); EOSINOPHILS 0.4 % (0.0-3.0); HEMATOCRIT 21.3 % (37.0-47.0); HEMOGLOBIN 7.2 gm/dL (12.0-15.0); LYMPHOCYTES 7.4 % (24.0-44.0); MCH 29.2 pg (26.0-34.0); MCHC 33.8 g/dL (28.0-37.0); MCV 86.5 fL (80.0-100.0); MONOCYTES 10.8 % (1.0-8.0); PLATELET COUNT 211 thou/uL (150-400); POLYS 81.3 % (36.0-66.0); RBC 2.46 mil/uL (4.20-5.00); RDW 15.1 % (10.5-14.5); WBC 7.8 thou/uL (4.0-11.0)
[2020-09-19 03:27] LABS: ALBUMIN 2.1 g/dL (3.4-5.0); CALCIUM 7.7 mg/dL (8.5-10.1); CREATININE 4.1 mg/dL (0.6-1.0); PHOSPHORUS 4.3 mg/dL (2.5-4.9); POTASSIUM 4.9 mmol/L (3.5-5.1)
[2020-09-19 05:36] LABS: GLYCOHEMOGLOBIN (HGB A1C) 6.2 % (4.8-5.6)
--- NOTE | 2020-09-19 17:51 | NUR ---
Cared for this patient over the weekend, Sunday, Sunday, and Sunday. Patient has been fairly stable. Pt has remained on the same vent settings with adequate oxygenation. Pt had bedside bronchoscopy on Sunday. Tolerated well. Heart rate and rhythm have been stable Sinus. Patient did start out on Levophed for low pressures, but has been off since Sunday. Patient has had IV bicard running over the weekend and renal function has improved. Lasix given today with large diuresis. Dietitian to see in am regarding tube feeds. No weaning done over the weekend. Patient requiring a lot of sedation to manage vent. Doses have increased each day. Discussed with Law about restarting home psych meds. Spoke with Daughter in law, Giana David, of the patient's son, Grabiel David. I understand from the conversation that the Grabiel and the patient have been estranged for many years and the authorized contact at OP care center is a friend, Checo, per patient request. Grabiel does not know much, thus why Giana is speaking for him. Gave daily updates about plan of care.
[2020-09-19 21:31] LABS: BE(vivo) 7.8 mmol/L (-2 to +3); HCO3 33.3 mmol/L (22.0-26.0); PCO2 53.3 mmHg (35.0-45.0); PO2 104.9 mmHg (80.0-100.0); pH 7.414 (7.360-7.450); sO2 97.8 % (92.0-98.0)
[2020-09-20] VITALS (24 sets, daily range): BP systolic 110–160; BP diastolic 52–79
[2020-09-20 04:30] LABS: HEMATOCRIT 21.9 % (37.0-47.0); HEMOGLOBIN 7.4 gm/dL (12.0-15.0); MCH 29.3 pg (26.0-34.0); MCHC 33.8 g/dL (28.0-37.0); MCV 86.7 fL (80.0-100.0); RBC 2.52 mil/uL (4.20-5.00); RDW 15.3 % (10.5-14.5); WBC 6.7 thou/uL (4.0-11.0)
[2020-09-20 04:50] LABS: CALCIUM 7.4 mg/dL (8.5-10.1); CREATININE 3.6 mg/dL (0.6-1.0); PHOSPHORUS 4.8 mg/dL (2.5-4.9); POTASSIUM 4.5 mmol/L (3.5-5.1)
--- NOTE | 2020-09-20 10:26 | NUR ---
renal function improved, rec start TF
--- NOTE | 2020-09-20 10:27 | NUR ---
Update on tube feed recommendations: vital high protein at goal of 50ml/hr while on propofol
--- NOTE | 2020-09-20 13:01 | NUR ---
chart review. remains on vent, nutritional support. cm consult for ltc. she [facility] from [facility]. cm team to update op centers.
--- NOTE | 2020-09-20 16:18 | NUR ---
PT FOLLOWING COMMANDS ON SEDATION VACTATION. NUTRITION STARTED TODAY. PT'S SON UPDATED ON PT CONDITION. CONTINUE TO MONITOR.
--- NOTE | 2020-09-20 19:02 | NUR ---
cares for this patient started at shift change the evening of 09/19. patient was recieved in good condition , bp 132/66 ,sinus rythem at 52, temp was 98.1. Med given per orders. patient was turned fron right to left with a wedge placement under her hips. patient continues to be intabated aand sadated. she does apper comfortable.
[2020-09-21] VITALS (24 sets, daily range): BP systolic 136–187; BP diastolic 65–91
[2020-09-21 06:03] LABS: HEMATOCRIT 23.3 % (37.0-47.0); HEMOGLOBIN 7.5 gm/dL (12.0-15.0); MCH 28.7 pg (26.0-34.0); MCHC 32.4 g/dL (28.0-37.0); MCV 88.7 fL (80.0-100.0); RBC 2.63 mil/uL (4.20-5.00); RDW 15.4 % (10.5-14.5); WBC 9.1 thou/uL (4.0-11.0)
[2020-09-21 06:34] LABS: ALBUMIN 2.1 g/dL (3.4-5.0); CALCIUM 6.7 mg/dL (8.5-10.1); CREATININE 3.5 mg/dL (0.6-1.0); PHOSPHORUS 4.7 mg/dL (2.5-4.9); POTASSIUM 4.4 mmol/L (3.5-5.1); TOTAL BILIRUBIN 0.4 mg/dL (0.2-1.0); TOTAL PROTEIN 6.3 g/dL (6.4-8.2)
--- NOTE | 2020-09-21 07:41 | NUR ---
ORDER FOR EVAL AND TREAT. Pt CONTINUES TO BE ON VENT AND SEDATED. WILL PLACE ON HOLD AND AWAIT NEW ORDERS WHEN APPROPRIATE
[2020-09-21 17:43] LABS: BE(vivo) 4.7 mmol/L (-2 to +3); HCO3 30.4 mmol/L (22.0-26.0); PCO2 51.3 mmHg (35.0-45.0); PO2 83.4 mmHg (80.0-100.0)
--- NOTE | 2020-09-21 18:32 | NUR ---
CPAP TRIAL ATTEMPTED. ABG WAS DRAWN. RT ELAINE INFORMED OF PT ABG AND CPAP PERFORMANCE. PT TOLEARTING TUBE FEED. URINE OUTPUT ADEQUATE. PT FOLLOWING COMMANDS. CONTINUE TO MONITOR.
[2020-09-22] VITALS (42 sets, daily range): BP systolic 99–177; BP diastolic 53–95
--- NOTE | 2020-09-22 01:02 | NUR ---
>>>1900 BEDSIDE SHIFT REPORT RECEIVED, CARE ASSUMED. >>>2030 ASSESSMENTS DONE DOCUMENTED. SEDATION VACATION DONE, PT TOLERATED WIHTOUT COMPLICATIONS. FOLLOWS COMMANDS. TOLERATING VENT SETTINGS DOCUMENTED. PT CONTINUES TO HAVE EPISODES OF LOSE STOOLS THIS SHIFT, FECCAL MANAGEMENT SYSTEM INSERTED. PT TOLERATED WITHOUT COMPLICATIONS.
[2020-09-22 05:58] LABS: ALBUMIN 2.1 g/dL (3.4-5.0); CREATININE 3.4 mg/dL (0.6-1.0); PHOSPHORUS 4.9 mg/dL (2.5-4.9); POTASSIUM 3.6 mmol/L (3.5-5.1)
[2020-09-22 06:09] LABS: CALCIUM 5.7 mg/dL (8.5-10.1)
[2020-09-22 06:10] LABS: HEMATOCRIT 22.6 % (37.0-47.0); HEMOGLOBIN 7.2 gm/dL (12.0-15.0); MCH 28.7 pg (26.0-34.0); MCHC 32.1 g/dL (28.0-37.0); MCV 89.4 fL (80.0-100.0); RBC 2.52 mil/uL (4.20-5.00); RDW 15.4 % (10.5-14.5); WBC 9.4 thou/uL (4.0-11.0)
[2020-09-22 09:07] LABS: BE(vivo) -0.4 mmol/L (-2 to +3); HCO3 24.5 mmol/L (22.0-26.0); PCO2 41.3 mmHg (35.0-45.0); PO2 82.4 mmHg (80.0-100.0); pH 7.391 (7.360-7.450)
--- NOTE | 2020-09-22 13:56 | NUR ---
FAXED CLINICAL UPDATE TO [facility] RECEIVED CONFIRMATION AND SPOKE WITH SHERMAN IN ADM. DP TO FOLLOW.
--- NOTE | 2020-09-22 16:43 | NUR ---
chart review. cont to require vent. covid +. updates sent to op centers. no anticipated dc over the weekend. will cont following as needed for dc needs.
--- NOTE | 2020-09-22 18:32 | NUR ---
ASSUMED CARE AT 0700. PATIENT EXTUBATED AT 1251 AND MASK WAS PLACED. OXYGEN TITRATED DOWN TO 5 L WHICH WAS TOLERATED WELL BY THE PATIENT. PRECEDEX GTT STARTED PER OIL PIPE INSPECTOR. PATIENT UPDATED AND EDUCATED ON PATIENT CONDITION AND PLAN OF CARE. PATIENT PROGRESSING TOWARDS THE PLAN OF CARE.
[2020-09-23] VITALS (54 sets, daily range): BP systolic 101–209; BP diastolic 54–169
--- NOTE | 2020-09-23 04:32 | NUR ---
PT IS ALERT AND ORIENTED TO PERSON. CONFUSED ON TIME. EXPLAIN TO PT SHE HAS BEEN SICK IN THE ICU. FOLLOWS COMMANDS ASK QUESTIOS APPROPRIATELY. LUNGS COARSE TO DIMINISHED. 5 LITERS NASAL CANULA. HYPOACTIVE BOWEL SOUNDS. CAMACHO TO DD WITH YELLOW URINE. CARDENE DRIP OFF PT NOW NOT NEEDED BLOOD PRESSURE STABLE SEE FLOW SHEET. SCD ON BILAERAL . BATH DONE. AND ORAL CARE DONE. WILL CONTINUE TO MONITOR AND ASSESS PER NURSING.
[2020-09-23 08:17] LABS: CREATININE 4.1 mg/dL (0.6-1.0); POTASSIUM 3.3 mmol/L (3.5-5.1)
[2020-09-23 08:21] LABS: CALCIUM 5.5 mg/dL (8.5-10.1)
--- NOTE | 2020-09-23 19:26 | NUR ---
PRECEDEX GTT WEANED OFF AT 1300. PT ANXIOUS AND REQUESTING TO RESTART ON HOME MEDICATION FOR ANXIETY. DR BERGERON NOTIFED. O2 WEANED TO 3L/NC. ORDER TO TRANSFER TO 3W. AWAITING AVAILABLE ROOM. REPORT GIVEN TO PARTY PLAN SELLING DISTRIBUTOR RN.
--- NOTE | 2020-09-23 22:08 | NUR ---
>>>1900 BEDSIDE SHIFT REPORT RECEIVED, CARE ASSUMED. >>>2030 ASSESSMENTS DONE DOCUMENTED. PT IS ALERT AND ORIENTED, NOTED TO BE RESTLESS, STATES SHE'S SCARED. NURSE TALKED TO HER AND ASSURED HER OF HER SECURITY IN THE HOSPITAL. CONTINUES ON 2L NC. MAINTAINS O2 SATS ABOVE 90%. WILL COTINUE TO MONITOR.
[2020-09-24 00:49] VITALS: BP 164/72
[2020-09-24 04:35] VITALS: BP 182/91
--- NOTE | 2020-09-24 05:26 | NUR ---
PT LYING IN BED. DENIES PAIN. ICU TX. RESTING COMFORTABLY. NO NEEDS VOICED. CALL LIGHT WITHIN REACH. FREQUENT OBSERVATION.
[2020-09-24 06:54] LABS: HEMATOCRIT 26.4 % (37.0-47.0); HEMOGLOBIN 8.4 gm/dL (12.0-15.0); MCH 28.1 pg (26.0-34.0); MCHC 31.9 g/dL (28.0-37.0); MCV 88.1 fL (80.0-100.0); RDW 15.3 % (10.5-14.5); WBC 15.8 thou/uL (4.0-11.0)
[2020-09-24 07:01] LABS: CREATININE 4.5 mg/dL (0.6-1.0); POTASSIUM 3.4 mmol/L (3.5-5.1)
[2020-09-24 07:22] LABS: CALCIUM 5.1 mg/dL (8.5-10.1)
[2020-09-24 09:31] VITALS: BP 164/96
[2020-09-24 10:46] LABS: PROT/CREAT RATIO 11.4; URINE CREATININE-RANDOM* 16.2 mg/dL; URINE PROTEIN-RANDOM* 183.9 mg/dL (<11.9)
[2020-09-24 11:39] VITALS: BP 205/104
--- NOTE | 2020-09-24 14:12 | NUR ---
chart review. she transferred from icu to 3w, she from op center. cm notified liaison if she ready over weekend call op center [phone], fax dc orders to [phone], call report to [phone] ask for pavilion. send chart copy and facility to set up transportation, ced with op centers [phone].
[2020-09-24 16:54] VITALS: BP 178/100
--- NOTE | 2020-09-24 19:12 | NUR ---
ASSUMED PATIENT CARE AT 0700. A/O X3. PATIENT WAS NONE STOP HOLLERING. BP HIGH. POOR APPETITE. SOB 40 MG LASIX GIVEN NOW. GENERLIZED EDEMA. SLOWLY TOWARDS POC GOALS.
[2020-09-24 19:41] VITALS: BP 174/102
--- NOTE | 2020-09-25 01:43 | NUR ---
PT CARE ASSUMED WITH PT IN BED WATCHING TV.PT IS A/O X3.PT IS ON BEDREST.PT IS ON 3L OF O2 NC.PT HAS CAMACHO CATHETER IN PLACE.PT IS ACCUCHECK ACHS WITH LOW SSI.PT LR FLUID D/C.PT HAS IV ACCESS AT RT IJ PIC TRIPPLE LUMEN.WILL CONTINUE TO MONITOR TILL EOS
[2020-09-25 04:38] VITALS: BP 215/108
[2020-09-25 06:36] LABS: HEMATOCRIT 27.3 % (37.0-47.0); HEMOGLOBIN 8.5 gm/dL (12.0-15.0); MCH 27.8 pg (26.0-34.0); MCHC 31.2 g/dL (28.0-37.0); MCV 89.2 fL (80.0-100.0); RBC 3.06 mil/uL (4.20-5.00); RDW 15.6 % (10.5-14.5); WBC 15.9 thou/uL (4.0-11.0)
[2020-09-25 06:42] LABS: CREATININE 5.4 mg/dL (0.6-1.0); POTASSIUM 3.7 mmol/L (3.5-5.1)
[2020-09-25 06:58] LABS: CALCIUM 5.2 mg/dL (8.5-10.1)
[2020-09-25 07:20] VITALS: BP 190/99
[2020-09-25 11:40] VITALS: BP 197/114
[2020-09-25 19:12] VITALS: BP 148/78
--- NOTE | 2020-09-25 19:19 | NUR ---
PATIENT RESTLESS THROUGH OUT THE DAY. REQUESTS THAT STAFF IS CONSTANTLY AT BEDSIDE TO TALK WITH. ALERT AND ORIENTED X4. HTN THIS AM, STARTED ON PO AMLODIPINE AND CARVEDILOL THIS AM. ACCUCHECKS ACHS. PATIENT NEEDS TO NEEDS TO BE FED FOR MEALS DUE TO UPER EXTREMITY WEAKNESS. PATIENT CALLED SON THIS MORNING. CAMACHO REMAINS IN PLACE. WORKED WITH THERAPY THIS AFTERNOON. ON 3LNC TOP MAINTAIN SATS. PROGRESSING.
--- NOTE | 2020-09-26 02:47 | NUR ---
CONTINUES ON 3.0 LITERS OF OXYGEN. DENIES PAIN. SHE DOES NOT LIKE THE COVERS ON HER LEGS AND FEET. COMPLAINTS THIS AM THAT SHE NEEDS SOME MIRALAX. LAST BM WAS ON 09/24. PREFERS TO HAVE THE ATTENTION ON HER WHILE NURSE IN ROOM, INSTEAD OF ON EQUIPEMENT ECT.
[2020-09-26 04:27] VITALS: BP 160/80
[2020-09-26 05:52] LABS: ALBUMIN 2.5 g/dL (3.4-5.0); CREATININE 6.2 mg/dL (0.6-1.0); MAGNESIUM 2.1 mg/dL (1.8-2.4); PHOSPHORUS 7.7 mg/dL (2.5-4.9); POTASSIUM 3.4 mmol/L (3.5-5.1)
[2020-09-26 05:53] LABS: CALCIUM 5.6 mg/dL (8.5-10.1)
[2020-09-26 08:35] VITALS: BP 192/106
[2020-09-26 10:00] LABS: CREATININE 6.3 mg/dL (0.6-1.0); PHOSPHORUS 7.6 mg/dL (2.5-4.9)
[2020-09-26 10:01] LABS: CALCIUM 5.6 mg/dL (8.5-10.1)
--- NOTE | 2020-09-26 11:14 | NUR ---
NOTED PATIENT RIGHT FOOT TOES ARE BLUE. DR LOPEZ ORDERED STAT US ARTERIAL PEDRO. RD CALLED BACK THAT HOUSE PROTOCOL NOT COVER STAT US ARTERIAL. COME ONE WILL COME AT 1700. DR LOPEZ NOTIFIED.
[2020-09-26 11:55] VITALS: BP 154/119
[2020-09-26 16:15] VITALS: BP 124/58
[2020-09-26 20:51] VITALS: BP 113/57
--- NOTE | 2020-09-27 04:29 | NUR ---
PT ALERT AND ORIENTED X3 VSS. RENAL AND LE US DONE. NO C/O PAIN ZGARD TO BOTTOM. TOES ARE CYANOTIC PT REFUSED BLANKET. BED DOWN CALLL LIGHT IN REACH. BED ALARM IS ON.
[2020-09-27 05:15] VITALS: BP 133/88
[2020-09-27 06:05] LABS: POTASSIUM 3.8 mmol/L (3.5-5.1)
[2020-09-27 06:24] LABS: CREATININE 7.6 mg/dL (0.6-1.0)
--- NOTE | 2020-09-27 06:52 | NUR ---
NOTIFED DEONTE KOWALSKI DELTA 7.6.PATY WELCH NOTIFIED DR RAMSEY . HE STATED THEY WILL TALKE CARE OF IT WHEN THEY COME IN.
[2020-09-27 09:40] VITALS: BP 110/62
--- NOTE | 2020-09-27 15:13 | NUR ---
IRENE reviewed chart and spoke with nursing and attending physician. Pt was transferred to from ICU. Remains in Enhanced Isolation due to COVID-19. Pt is afebrile and on 3.5L of O2. Awaiting input from ID for recommendations for discharge meds. Discharge anticipated in 1-2 days. SW faxed clinical updates to [facility] and notified liaison, Sammi, of anticipated discharge. Confirme they will be able to admit pt back to their facility. IRENE placed call to pt's room. No answer. IRENE spoke with pt's son, Grabiel, via phone to provide update and confirm discharge plan. IRENE is following to assist as needed with discharge planning.
[2020-09-27 16:17] VITALS: BP 156/89
--- NOTE | 2020-09-27 18:33 | NUR ---
PT SOMEWHAT CONFUSED AND EASILY IRRITABLE, WAS REPOSITIONED THROUGHOUT THE DAY, MOOD SEEMED TO IMPROVE THROUGHOUT THE DAY, PT STILL ON 5L NC, WILL MONITOR
[2020-09-27 20:45] VITALS: BP 126/58
[2020-09-28 04:22] VITALS: BP 131/91
--- NOTE | 2020-09-28 05:20 | NUR ---
Assumed pt care at 1900. A/OX3 with confusion, gets easily irritable during cares. VSS.Denies pain on assessment. Edema noted on BUE/BLE,wheezes and intermittent SOA;pt being followed by animal husbandman for REYNALDO no diuresis at this time. Marleen METAL DRILLING MACHINE OPERATOR notified;order for breathing tx/CXR obtained. Pt's max assist with ADLs. Incontinent of bowels loose stool X1. Szymanski patent with yellow urine. Poor oral intake noted. Fall precautions in place. Will continue to monitor pt.
[2020-09-28 05:51] LABS: ALBUMIN 2.4 g/dL (3.4-5.0); CALCIUM 6.5 mg/dL (8.5-10.1); CREATININE 8.1 mg/dL (0.6-1.0); PHOSPHORUS 8.9 mg/dL (2.5-4.9); POTASSIUM 4.1 mmol/L (3.5-5.1)
[2020-09-28 07:41] VITALS: BP 115/92
--- NOTE | 2020-09-28 09:53 | NUR ---
ASSUMED PATIENT CARE AT 0700. A/0 X3 PATIENT ON 10L/NV. LABOR BREATHING AND WHEEZY.RECEICED PHONE CALL FROM CHRIS'RICHARD THAT HE DID TALK TO SON OLIVIER ABOUT PATIENT CONDITION. FAMILY DOES WANT PATIENT TO HAVE DH AND VENT. FAMILY WILL CALL BACK TO HOSPITAL DR TO DISCUSS CODE STATUE. PEDRO TOES,FINGERS ARE ROTATED TURN TO BLUE. WILL KEEP MONITOR.
--- NOTE | 2020-09-28 13:40 | NUR ---
IRENE reviewed chart and spoke with nursing and attending physician. Pt remains in Enhanced Isolation due to COVID-19. Pt is afebrile and now requiring 10L of O2. SW provided update to Sammi at [facility] who states they can accommodate up to 8L of O2. Sammi to check to see if they are able to provide more if needed. Plan is for pt to return to [facility] when medically stable. IRENE is following to assist as needed with discharge planning.
[2020-09-28 15:26] VITALS: BP 152/68
[2020-09-28 20:01] VITALS: BP 143/73
[2020-09-29 05:14] VITALS: BP 144/54
--- NOTE | 2020-09-29 06:20 | NUR ---
PT SLEPT MOST OF SHIFT, EASILY AROUSABLE WHEN AWAKING FOR MED PASS. PT REQUESTED TO CALL HER SON AT 0300, AND REDIRECTED TO A LATER TIME. LABS PULLED FROM [facility]. DEBBIE AND JANICE IN PLACE.
[2020-09-29 06:53] LABS: ALBUMIN 2.4 g/dL (3.4-5.0); CALCIUM 6.9 mg/dL (8.5-10.1); POTASSIUM 4.3 mmol/L (3.5-5.1)
[2020-09-29 06:57] LABS: CREATININE 9.4 mg/dL (0.6-1.0)
[2020-09-29 08:04] VITALS: BP 145/63
--- NOTE | 2020-09-29 13:36 | NUR ---
ASSUMED PATIENT CARE AT 0700. A/O X3 SOB WHEEZY . PATIENT TOLD RT "I WANT DIALYSIS NOW". RN CALLED DR HAIDER AND DR TOM. XANAX AND MORPHINE ORDERED BY DR LOPEZ. WILL KEEP MONITOR.
--- NOTE | 2020-09-29 13:58 | NUR ---
SW reviewed chart and spoke with nursing and attending physician. Pt remains in Enhanced Isolation due to COVID-19. Pt is afebrile and on 10L of O2. Pt is a DNR. Pt's nurse has been updating pt's son. IRENE updated Sammi at [facility]. IRENE asked if pt is able to return to the facility with hospice if condition is stable. Awaiting call back from Sammi at this time. IRENE is following to assist as needed with discharge planning.
[2020-09-29 15:43] VITALS: BP 116/27
[2020-09-29 20:11] VITALS: BP 146/55
[2020-09-30 03:33] VITALS: BP 136/40
[2020-09-30 07:35] VITALS: BP 133/43
[2020-09-30] MEDS ORDERED: DURAGESIC1 EAC4 TRANSDERM (15:06)
[2020-09-30] MEDS ORDERED: MORPHINE S10 MG/5 M2 PO (15:08)
[2020-09-30] MEDS ORDERED: ATIVAN1 M1 PO (15:09)
--- NOTE | 2020-09-30 15:15 | NUR ---
IRENE reviewed chart and spoke with nursing and attending physician. Pt remains in Enhanced Isolation due to COVID-19. Pt is afebrile and on 7L of O2. Pt is a DNR. Attending physician spoke with pt's son to discuss plan of care. Pt's son is agreeable with pt returning to [facility] with hospice. IRENE contacted Sammi at [facility] to discuss pt returning on hospice. Sammi checking to see when they can accept pt back and what hospices are seeing pts in their building. Awaiting call back at this time. IRENE is following to assist as needed with discharge planning.
[2020-09-30 15:38] VITALS: BP 116/49
--- NOTE | 2020-09-30 18:40 | NUR ---
RN ASSUMED PT'S CARE AT 0700AM, PT IS A&OX2 ( PERSON AND PLACE ), PT CAN FOLLOW COMMANDS, RN HAS REPORTED TO DR ABOUT PT'S REFUSED EAT AND MEDICATIONS, PT'S O2 IS ON 6-8L/MIN/NC TO KEEP 02 SAT >92%, PT IS ON ISOLATION FOR POSITIVE COVID, PT 'S VS ARE STABLE AT THIS TIME.
[2020-09-30 20:09] VITALS: BP 119/47
[2020-10-01 04:31] VITALS: BP 119/52
--- NOTE | 2020-10-01 06:50 | NUR ---
PT SLEPT ALL SHIFT. REFUSING MEDICATIONS, WILL NOT TAKE THEM IN PUDDING OR APPLESAUCE. O2 AT 8L. Q2 TURNS AND HOURLY ROUNDING.
[2020-10-01 09:00] VITALS: BP 119/52
--- NOTE | 2020-10-01 14:45 | NUR ---
DISCHARGE NOTE: IRENE reviewed chart and spoke with nursing and attending physician. Pt is medically stable to discharge back to [facility] today with hospice. IRENE contacted Sammi at [facility] who states they use [facility]. IRENE placed call to [facility] and spoke with Jennyfer, who states they are not yet certified and cannot provide hospice in the facility. IRENE contacted Sammi again, who states they also use [facility]. IRENE faxed referral to [facility] and notified Noemi of referral. [facility] is able to accept pt on service. IRENE faxed finalized discharge orders/summary to [facility] and to [facility]. Confirmed info was received. IRENE arranged ambulance transportation for 1600 via [facility]. IRENE spoke with pt's son, Grabiel, via phone to provide update and notify of discharge plan. Grabiel is aware and in agreement wiht plan. Pt's son is hoping that hospice will be able to assist with Face Time/virtual visits. IRENE discussed with Noemi at [facility], who states they are able to provide virtual visits with pt and her son and his family. Outside the Hospital DNR form signed by physician and placed on chart. Chart copy requested. Nursing to call report to [phone]. No additional SW needs identified at this time, but is available to assist should needs arise.
== END 2020-10-01 18:01 | disposition hospice, home (50) | DRG 870 ==
LOC: ER 23:11 → EROBS 09-17 01:31 → ICU 09-17 01:31 → 3W 09-24 00:44
PROVIDERS: Emergency Medicine; Hospitalist; Internal Medicine Nephrology; Internal Medicine Pulmonary Disease; Nurse Practitioner Family; Pediatrics; Specialist; ADMIT Hospitalist; ATTEND Hospitalist
PROC: 0BH18EZ Insertion of Endotracheal Airway into Trachea, Via Natural or Artificial Opening Endoscopic (ICD-10-PCS; 2020-09-17)
PROC: 5A0935A Assistance with Respiratory Ventilation, Less than 24 Consecutive Hours, High Flow/Velocity Cannula (ICD-10-PCS; 2020-09-17)
PROC: 5A1955Z Respiratory Ventilation, Greater than 96 Consecutive Hours (ICD-10-PCS; 2020-09-17)
PROC: 02HV33Z Insertion of Infusion Device into Superior Vena Cava, Percutaneous Approach (ICD-10-PCS; 2020-09-17)
PROC: XW033E5 Introduction of Remdesivir Anti-infective into Peripheral Vein, Percutaneous Approach, New Technology Group 5 (ICD-10-PCS; 2020-09-18)
PROC: 30233K1 Transfusion of Nonautologous Frozen Plasma into Peripheral Vein, Percutaneous Approach (ICD-10-PCS; 2020-09-18)
PROC: 0B9F8ZX Drainage of Right Lower Lung Lobe, Via Natural or Artificial Opening Endoscopic, Diagnostic (ICD-10-PCS; principal; 2020-09-19)
DX: A41.89 Other specified sepsis (principal); U07.1 COVID-19; R65.21 Severe sepsis with septic shock; J80 Acute respiratory distress syndrome; J12.89 Other viral pneumonia; G93.40 Encephalopathy, unspecified; N17.9 Acute kidney failure, unspecified; I42.9 Cardiomyopathy, unspecified; E87.2 Acidosis; J44.0 Chronic obstructive pulmonary disease with (acute) lower respiratory infection; F17.210 Nicotine dependence, cigarettes, uncomplicated; E87.5 Hyperkalemia; I10 Essential (primary) hypertension; F31.9 Bipolar disorder, unspecified; G40.909 Epilepsy, unspecified, not intractable, without status epilepticus; E83.51 Hypocalcemia; B95.62 Methicillin resistant Staphylococcus aureus infection as the cause of diseases classified elsewhere; B96.89 Other specified bacterial agents as the cause of diseases classified elsewhere; Y95 Nosocomial condition; Z66 Do not resuscitate; Z51.5 Encounter for palliative care; N30.90 Cystitis, unspecified without hematuria; D64.9 Anemia, unspecified; Z88.8 Allergy status to other drugs, medicaments and biological substances; Z79.899 Other long term (current) drug therapy
CPT/HCPCS: 10078; 10779; 85076

== ENCOUNTER 2020-10-02 17:56 | Emergency (ER) | payer MEDICAID ==
[~2020-10-02] VITALS: Ht 152.4 cm; Wt 82.6 kg
--- NOTE | ~2020-10-02 | EMS ---
[facility] [address] [place] [address] EMS Patient Care Report Name: DENIZ WOO Room #: DEP FINESSE Rodríguez#: [id number] Admission: 10/02/20 Attend Phys: Discharge: 10/02/20 Date of : 55 Report #: [id number] THIS REPORT FOR: //name// Report Transmitted: 10/02/2020 21:55 EMS Care Summary [facility] MED-ACT Incident [id number] @ 10/02/2020 17:16 Incident [address] [place] [address] Patient DENIZ WOO Female, 65 Years 1955 Patient Address [address] [place] [address] Patient History Chronic Obstructive Pulmonary Disease (COPD),Hypertension (HTN),Kidney/Renal Failure,Anemia, Patient Allergies Levaquin, Patient Medications Cyanocobalamin Co57, Gabapentin, Clonazepam, Tylenol, Symbicort, Chief Complaint "She hasn't signed her hospice paperwork .." Disposition Transported No Lights/[place] Reason Unconscious/Fainting Transported To [facility] Narrative "She hasn't signed her hospice paperwork and is now unresponsive and unable to [facility] [address] [place] [address] EMS Patient Care Report Name: DENIZ WOO Room #: DEP FINESSE Rodríguez#: [id number] Admission: 10/02/20 Attend Phys: Discharge: 10/02/20 Date of : 55 Report #: [id number] sign" [id number] responded for a PT experiencing difficulty breathing. [id number] arrived to find the PT under the care of facility staff and S47. A unit nurse advised that the PT returned to their facility yesterday at some point and has been verbally responsive since then. The facility staff member advised that the PT was diagnosed with COVID and COPD while at [facility] and the plan was for the PT to sign her hospice paperwork yet she is unable to due to her decline in mental status and that the facility physician has requested that she be sent back to [facility] for treatment. The facility staff report that the PT does not have a designated DPOA and that she does not have a DNR and is a full code. The staff mentioned that the PT is normally able to hold a full conversation without difficulty and usually wears Oxygen at 2 LPM via nasal cannula. The staff mentioned that they received a SPO2 saturation using a finger probe that revealed 70 percent and therefore her Oxygen level was increased to 10 LPM via nasal cannula. The facility report that no family member has been contacted about the decision to transport the PT for further treatment and evaluation. The PT was found sitting in a semi-fowlers position in her assigned bed of the COVID unit of the facility, alert and not able to communicate. The PT is unable to answer questions and appears to track verbal commands with her eyes periodically. The PT is lifted and moved to the cot, draped with a sheet and secured using the cot straps provided. The PT's Oxygen rate is decreased from 10 LPM to 6 LPM via nasal cannula and an ETCO2 cannula was applied. The PT was draped with a sheet and secured using the cot straps provided. The PT was then moved to the ambulance for further evaluation and treatment via the cot without incident. Treatment - Assessment, Vital Signs, 3 Lead EKG, 12 Lead EKG, 12 Lead EKG Transmission to [facility], Blood Glucose Analysis, Temperature Check, Surgical Mask Application, Oxygen via ETCO2 Nasal Cannula at 6 LPM The PT was transported to [facility] per facility staff request. A 2nd ALS provider was utilized in the PT treatment during the transportation phase of the incident. S47 remained on the call until the arrival at [facility] to provide manpower and assistance. The PT was delivered to exam room 4 and a verbal report was given to the attending RN without incident. [id number] went back in service without incident as nothing further was required. Initial Vitals @17:43P: 71,R: 8,Pain: 0/10,GCS: 8,Glucose: 193,EtCO2: 30,SpO2: 97,OH Suspected: true @17:36P: 77,R: 8,Pain: 0/10,GCS: 8,EtCO2: 29,SpO2: 87,OH Suspected: true @17:52P: 75,R: 8,GCS: 9,EtCO2: 29,SpO2: 93, @17:53P: 65,R: 8,BP: 108/43,Pain: 0/10,GCS: 9,SpO2: 93,Revised Trauma: 9,OH [facility] [address] [place] [address] EMS Patient Care Report Name: DENIZ WOO Room #: DEP FINESSE Rodríguez#: [id number] Admission: 10/02/20 Attend Phys: Discharge: 10/02/20 Date of : 55 Report #: [id number] Suspected: true @17:28P: 81,R: 8,BP: 128/67,Pain: 0/10,GCS: 9,Temp: 98.8F,SpO2: 100,Revised Trauma: 9,OH Suspected: true @17:44P: 68,R: 8,Pain: 0/10,GCS: 9,EtCO2: 29,SpO2: 93,OH Suspected: true @17:44P: 74,R: 8,Pain: 0/10,GCS: 9,EtCO2: 35,SpO2: 91,OH Suspected: true @17:40P: 68,R: 8,Pain: 0/10,GCS: 9,EtCO2: 29,SpO2: 97,OH Suspected: true Assessments @17:28MENTAL:Unresponsive,SKIN:Diaphoresis,Pale,HEENT:Head/Face: No Abnormalities,Neck/Airway: No Abnormalities,LUNG SOUNDS:General: No Abnormalities,ABDOMEN:General: No Abnormalities,PELVIS//GI:No Abnormalities,EXTREMITIES:PULSE:NEURO: Impression COVID-19 - Confirmed by testing Procedures @17:4412-Lead ECGResponse: UnchangedSucceeded@17:4312-Lead ECGResponse: UnchangedSucceeded@PTASurgical Mask on PatientResponse: Unchanged@17:28Oxygen FlowRate: 6 Device: Nasal Cannula (NC) Response: UnchangedSucceeded Timeline INFORMATION TECHNOLOGY OFFICER,Surgical Mask on Patient,Response: Unchanged 17:14,Call Received 17:14,Psap Call 17:16,Dispatched 17:16,En Route 17:21,On Scene 17:25,At Patient 17:28,Oxygen FlowRate: 6 Device: Nasal Cannula (NC) Response: UnchangedSucceeded, 17:28,BP: 128/67 M,PULSE: 81,RR: 8 R,SPO2: 100 Ox,ETCO2: ,BG: ,PAIN: 0,GCS: 9, 17:36,BP: / M,PULSE: 77,RR: 8 R,SPO2: 87 Ox,ETCO2: 29 ,BG: ,PAIN: 0,GCS: 8, 17:40,BP: / M,PULSE: 68,RR: 8 R,SPO2: 97 Ox,ETCO2: 29 ,BG: ,PAIN: 0,GCS: 9, 17:43,12-Lead ECG,Response: UnchangedSucceeded, 17:43,BP: / M,PULSE: 71,RR: 8 R,SPO2: 97 Ox,ETCO2: 30 ,B,PAIN: 0,GCS: 8, 17:44,BP: / M,PULSE: 74,RR: 8 R,SPO2: 91 Ox,ETCO2: 35 ,BG: ,PAIN: 0,GCS: 9, 17:44,12-Lead ECG,Response: UnchangedSucceeded, 17:44,BP: / M,PULSE: 68,RR: 8 R,SPO2: 93 Ox,ETCO2: 29 ,BG: ,PAIN: 0,GCS: 9, 17:47,Depart Scene 17:52,BP: / M,PULSE: 75,RR: 8 R,SPO2: 93 Ox,ETCO2: 29 ,BG: ,PAIN: ,GCS: 9, 17:53,BP: 108/43 M,PULSE: 65,RR: 8 R,SPO2: 93 Ox,ETCO2: ,BG: ,PAIN: 0,GCS: 9, 17:53,At Destination 18:17,Call Closed Disclaimer [facility] [address] [place] [address] EMS Patient Care Report Name: DENIZ WOO Room #: DEP Anne#: [id number] Admission: 10/02/20 Attend Phys: Discharge: 10/02/20 Date of : 55 Report #: [id number] v1.1 Copyright 2020 [employer] This EMS Care Summary contains data elements from the applicable legal record (which may be displayed differently). It is designed to provide pertinent information for the following purposes: continuity of care, clinical quality, and state data reporting. The complete legal record is available to ED staff and administrators of the receiving hospital in [facility] Patient Tracker. All data is provided "as is."
[~2020-10-02 17:56] MED LIST changes: +ATIVAN1 M1 PO; +DURAGESIC1 EAC4 TRANSDERM; +ENALAPRIL MALEA10 M1 PO; +LOPERAMIDE2 MG PO; +MORPHINE S10 MG/5 M2 PO; +NEURONTIN 300M300 M2 PO; +VITAMIN B-121000 MC2 SUBLING; +VITAMIN C250 M1 PO; +VITAMIN D310 MC3 PO; +VRAYLAR3 MG PO
[2020-10-02 18:55] LABS: HEMATOCRIT 20.6 % (37.0-47.0); MCH 28.5 pg (26.0-34.0); MCHC 31.3 g/dL (28.0-37.0); MCV 90.9 fL (80.0-100.0); PLATELET COUNT 214 thou/uL (150-400); RBC 2.26 mil/uL (4.20-5.00); RDW 15.8 % (10.5-14.5); WBC 24.6 thou/uL (4.0-11.0)
[2020-10-02 18:57] LABS: HEMOGLOBIN 6.4 gm/dL (12.0-15.0)
[2020-10-02 18:59] LABS: HCO3 14.4 mmol/L (22.0-26.0); PCO2 59.7 mmHg (35.0-45.0); PO2 211.3 mmHg (80.0-100.0); sO2 98.8 % (92.0-98.0)
[2020-10-02 19:01] LABS: pH 7.001 (7.360-7.450)
[2020-10-02 19:12] LABS: ABSOLUTE NEUTROPHILS 21.4 thou/uL (1.4-8.2)
[2020-10-02 19:14] LABS: ANISOCYTOSIS 1+
[2020-10-02 19:21] LABS: ALBUMIN 2.1 g/dL (3.4-5.0); CALCIUM 8.6 mg/dL (8.5-10.1); CREATININE 13.7 mg/dL (0.6-1.0); TOTAL BILIRUBIN 0.4 mg/dL (0.2-1.0); TOTAL PROTEIN 6.9 g/dL (6.4-8.2)
[2020-10-02 19:24] LABS: POTASSIUM 7.4 mmol/L (3.5-5.1)
--- NOTE | 2020-10-02 19:29 | EKG ---
[facility] [place] [address] ELECTROCARDIOGRAM REPORT Name: DENIZ WOO Room #: [facility].#: [id number] Admission: 10/02/20 Attend Phys: Discharge: Date of : 55 Report #: [id number] THIS REPORT FOR: cc: Ric Scott MD, Shyam MD Lundgren,Dom Diaz MD [facility] ~ THIS REPORT FOR: //name// [facility] ED Test Date: 2020-10-02 Test Time: 18:05:21 Pat Name: DENIZ WOO Department: Room: Gender: F [employer] Straight[employer]: [facility] : 1955 Requested By: Taqueria Braxton Order Number: [id number] MD: Dom Ramos Measurements Intervals Oneco Rate: 73 P: TN: QRS: 118 QRSD: 190 T: -51 QT: 486 QTc: 536 Interpretive Statements Atrial fibrillation Right bundle branch block Inferior lateral ST and T wave abnormality Compared to ECG 09/17/2020 00:22:24 Right bundle-branch block now present ST and T wave abnormality is new Sinus rhythm no longer present Electronically Signed On 10-02-2020 19:29:41 POINT OF CARE TECHNICIAN by Dom Ramos [email or web address] <ELECTRONICALLY SIGNED> By: Dom Ramos MD, FACC 10/02/20 1929 180 180 Dom Ramos MD, FAC /EPI
[2020-10-02 20:25] VITALS: BP 127/45
== END 2020-10-02 20:26 ==
LOC: ER 17:56
PROVIDERS: Emergency Medicine
DX: U07.1 COVID-19 (principal); R41.82 Altered mental status, unspecified; J44.9 Chronic obstructive pulmonary disease, unspecified; F31.9 Bipolar disorder, unspecified; I73.9 Peripheral vascular disease, unspecified; I10 Essential (primary) hypertension; F17.210 Nicotine dependence, cigarettes, uncomplicated; Z79.899 Other long term (current) drug therapy; Z88.1 Allergy status to other antibiotic agents; Z88.8 Allergy status to other drugs, medicaments and biological substances